=== PATIENT | male | born 1970 | race Caucasian/White ===

== ENCOUNTER 2018-04-05 17:20 | Emergency (ER) | payer OTHER ==
--- NOTE | 2018-04-05 17:43 | ED GI/GU/ABDOMINAL COMPLAINT ---
History of Present Illness General Chief Complaint: Abdominal Pain/Flank Pain Stated Complaint: LEFT SIDED ABD PAIN, X 2 DAYS Source: patient Exam Limitations: no limitations Vital Signs & Intake/Output Vital Signs & Intake/Output Vital Signs Date Time Temp Pulse Resp B/P B/P Pulse O2 O2 Flow FiO2 Mean Ox Delivery Rate 04/05 1913 99.0 89 20 149/99 100 Room Air 04/05 1738 98.6 103 17 130/86 96 Room Air Allergies Coded Allergies: NO KNOWN ALLERGIES (07/15/11) Reconcile Medications Ciprofloxacin HCl (Cipro) 500 MG TABLET 1 TAB PO BID DIVERTICULITIS Metronidazole (Flagyl) 500 MG TABLET 1 TAB PO TID DIVERTICULITIS Triage Note: PT TO ED WITH C/O MID-LEFT SIDED ABD PAIN SINCE LAST NIGHT. SUBJECTIVE FEVER AT HOME. DENIES N/V. STATES URINE SEEMS CONCENTRATED. DENIES CHANGES IN BOWEL. Triage Nurses Notes Reviewed? yes Onset: Abrupt Duration: day(s):, constant Timing: recent history Location: left lower quadrant Radiation: no radiation Activities at Onset: none HPI: 47-year-old male comes into the emergency room complaints of left lower abdominal pain as well as fever. Symptoms for the last couple days. Pain is point tender. Denies any blood in his stool. Denies any vomiting. Denies any prior abdominal surgeries. He comes in for further evaluation. (Luis Felipe Ray) Past History Travel History Traveled to [place] past 21 day No Medical History Any Pertinent Medical History? none Surgical History Surgical History: non-contributory Psychosocial History What is your primary language Czech Tobacco Use: Current Daily Use Daily Tobacco Use Amount/Type: => 5 Cigarettes daily ETOH Use: occasional use Family History Hx Contributory? No (Luis Felipe Ray) Review of Systems Review of Systems Constitutional: Reports: no symptoms. EENTM: Reports: no symptoms. Respiratory: Reports: no symptoms. Cardiovascular: Reports: no symptoms. GI: Reports: see HPI. Genitourinary: Reports: no symptoms. Musculoskeletal: Reports: no symptoms. Skin: Reports: no symptoms. Neurological/Psychological: Reports: no symptoms. Hematologic/Endocrine: Reports: no symptoms. Immunologic/Allergic: Reports: no symptoms. All Other Systems: Reviewed and Negative (Luis Felipe Ray) Physical Exam Physical Exam General Appearance: well developed/nourished, no apparent distress, alert, awake Head: atraumatic, normal appearance Ears, Nose, Throat, Mouth: moist mucous membrane Neck: normal inspection Respiratory: no respiratory distress Gastrointestinal: soft, tenderness (llq) Back: normal inspection Extremities: normal range of motion Neurologic/Psych: awake, alert, oriented x 3 Skin: intact, normal color Core Measures ACS in differential dx? No Sepsis Present: No Sepsis Focused Exam Completed? No (Luis Felipe Ray) Progress Differential Diagnosis: bowel obstruction, diverticulitis, gastritis, ischemic bowel, ureterolithiasis Plan of Care: Orders Procedure Date/time Status URINALYSIS 04/05 1742 Complete C-REACTIVE PROTEIN 04/05 1742 Complete COMPREHENSIVE METABOLIC PANEL 04/05 1742 Complete CBC WITHOUT DIFFERENTIAL 04/05 1742 Complete Laboratory Tests 04/05/18 1801: Urine Color YEL, Urine Clarity HAZY H, Urine pH 6.0, Ur Specific Dorothy >= 1.030, Urine Protein TRACE H, Urine Ketones NEG, Urine Nitrite NEG, Urine Bilirubin NEG, Urine Urobilinogen 0.2, Ur Leukocyte Esterase NEG, Ur Microscopic SEDIMENT EXAMINED, Urine RBC RARE, Urine WBC RARE, Ur Epithelial Cells RARE, Urine Bacteria MOD H, Urine Mucus MOD H, Urine Hemoglobin TRACE-INTACT H, Urine Glucose NEG 04/05/18 1750: Anion Gap 5, Estimated GFR > 60, BUN/Creatinine Ratio 10.8, Glucose 102 H, Calcium 9.9, Total Bilirubin 1.3, AST 14 L, ALT 24, Alkaline Phosphatase 70, C- Reactive Prot, Quant > 9.0 H, Total Protein 7.0, Albumin 4.2, Globulin 2.8, Albumin/Globulin Ratio 1.5, CBC w Diff NO MAN DIFF REQ, RBC 5.05, MCV 89.5, MCH 30.3, MCHC 33.8, RDW 13.9, MPV 7.9, Gran % 77.7 H, Lymphocytes % 12.5 L, Monocytes % 8.8, Eosinophils % 0.7, Basophils % 0.3, Absolute Granulocytes 10.7 H, Absolute Lymphocytes 1.7, Absolute Monocytes 1.2 H, Absolute Eosinophils 0.1 , Absolute Basophils 0 Diagnostic Imaging: Viewed by Me: CT Scan. Discussed w/RAD: CT Scan. Radiology Impression: PATIENT: NAHEED KANG PRESENT AGE: 47 PATIENT ACCOUNT NO: [id number] : 69 LOCATION: [facility] ORDERING PHYSICIAN: Luis Felipe JOHNS SERVICE DATE: 04/05/18 EXAM TYPE: CAT - CT ABD & PELVIS W IV CONTRAST EXAMINATION: CT ABDOMEN AND PELVIS WITH CONTRAST CLINICAL INFORMATION: Left lower quadrant pain. COMPARISON: None. TECHNIQUE: Contiguous axial thin section helical images of the abdomen and pelvis were performed following the administration of 85 mL of intravenous Optiray 320. The data set was reformatted in the coronal and sagittal planes and reviewed on an independent workstation. DLP: 445 mGy-cm. FINDINGS: The visualized lung bases are clear. The visualized portions of the heart are unremarkable. The liver is of normal size and attenuation without focal lesions nor intrahepatic biliary ductal dilation. A normal gallbladder is identified. There is no wall thickening or discernible pericholecystic fluid. The spleen, pancreas, adrenal glands are unremarkable. Both kidneys are of normal size and attenuation without hydronephrosis or nephrolithiasis. Following the administration of IV contrast, prompt symmetric nephrograms are displayed. There is no abdominal free fluid. There is neither mesenteric nor retroperitoneal lymphadenopathy. There is sigmoid diverticulosis with mild wall thickening and adjacent fat stranding. Otherwise, unremarkable unopacified loops of small and large bowel are identified. A normal appendix is identified. There is no pelvic free fluid. The urinary bladder is unremarkable. There is neither pelvic nor inguinal lymphadenopathy. Bone windows: Neither sclerotic nor lytic bone lesions are identified. There is disc height loss at L5/S1. IMPRESSION: Sigmoid diverticulosis and diverticulitis without drainable fluid collections. DICTATED BY: Vikram Chen MD DATE/TIME DICTATED:04/05/181905 MANAGER SALES AND MARKETING: [employer] DATE/TIME TRANSCRIBED:04/05/181905 CONFIDENTIAL, DO NOT COPY WITHOUT APPROPRIATE AUTHORIZATION. <Electronically signed in Other Vendor System> SIGNED BY: Vikram Chen MD 04/05/181920 Initial ED EKG: none (Yg JOHNS,Luis Felipe) Departure Departure Disposition: HOME OR SELF CARE Condition: Stable Clinical Impression Primary Impression: Acute diverticulitis Referrals: Shama ALCANTARA,Rafat Adamson MD,Andre Esposito Additional Instructions: Take ciprofloxacin and Flagyl as prescribed. Follow-up with primary care doctor. Return if any concerns worsening symptoms. Please go over all results of today's visit with your primary care doctor. Contact your primary care doctor to let them know you were here in the emergency room. There may be nonspecific findings which may not be related to your visit today here in the emergency room but may require further evaluation and chronic monitoring by your primary care doctor. If you had a laceration today the chance of foreign body always remains. You should follow-up with your primary care doctor for recheck in 3-5 days for a wound check. If you had an x-ray done there is a chance that a fracture could have been missed on initial read and you should follow-up with your primary care doctor for repeat x-rays if symptoms persist. If your blood pressure was elevated here in the emergency room please have rechecked by zo primary care doctor within the next 48. If you were prescribed a narcotic here in the emergency room or any type of controlled substances you're not allowed to drive while taking this medication or operate any type of heavy machinery. Narcotics can make you feel lightheaded dizziness nausea and can cause constipation. You may need to chicken picker a stool softener. Thank you for choosing [facility] emergency room. Please return to the emergency room immediately if you have any other concerns worsening of symptoms. Departure Forms: Customer Survey General Discharge Information Prescriptions: Current Visit Scripts Ciprofloxacin HCl (Cipro) 1 TAB PO BID #20 TAB Metronidazole (Flagyl) 1 TAB PO TID #30 TAB Comments 04/05/18 No evidence of perforation or abscess. Patient started on oral antibiotics. Follow-up with veneer grader. Return if any other concerns. (Luis Felipe Ray) PA/GARMENT PATTERNMAKER Co-Sign Statement Statement: ED Attending supervision documentation- I saw and evaluated the patient. I have also reviewed all the pertinent lab results and diagnostic results. I agree with the findings and the plan of care as documented in the PA's/GARMENT PATTERNMAKER's documentation. x I have reviewed the ED Record and agree with the PA's/GARMENT PATTERNMAKER's documentation. [] Additions or exceptions (if any) to the PAs/GARMENT PATTERNMAKER's note and plan are summarized below: [] (Nikolai ALCANTARA,Herman)
[2018-04-05 17:57] LABS: ABSOLUTE BASOPHIL COUNT 0 /CUMM (0.0-0.2); ABSOLUTE EOSINOPHIL COUNT 0.1 /CUMM (0.0-0.7); ABSOLUTE GRANULOCYTE CT 10.7 /CUMM (1.4-6.5); ABSOLUTE LYMPH COUNT 1.7 /CUMM (1.2-3.4); ABSOLUTE MONOCYTE COUNT 1.2 /CUMM (0.10-0.60); BASOPHIL % 0.3 % (0.0-2.0); EOSINOPHIL % 0.7 % (0-5); GRANULOCYTE % 77.7 % (42.2-75.2); HEMATOCRIT 45.2 % (42-52); MEAN CORPUSCULAR HGB 30.3 PG (27.0-31.0); MEAN CORPUSCULAR HGB CONC 33.8 G/DL (33.0-37.0); MEAN CORPUSCULAR VOLUME 89.5 FL (80.0-94.0); MEAN PLATELET VOLUME 7.9 FL (7.4-10.4); PLATELET COUNT 254 /CUMM (130-400); RBC DISTRIBUTION WIDTH 13.9 % (11.5-14.5); RED BLOOD CELL CT 5.05 /CUMM (4.70-6.10); WHITE BLOOD CELL COUNT 13.8 /CUMM (4.8-10.8)
[2018-04-05 19:13] VITALS: BP 149/99
--- NOTE | 2018-04-05 19:21 | CT SCAN REPORT ---
EXAMINATION: CT ABDOMEN AND PELVIS WITH CONTRAST CLINICAL INFORMATION: Left lower quadrant pain. COMPARISON: None. TECHNIQUE: Contiguous axial thin section helical images of the abdomen and pelvis were performed following the administration of 85 mL of intravenous Optiray 320. The data set was reformatted in the coronal and sagittal planes and reviewed on an independent workstation. DLP: 445 mGy-cm. FINDINGS: The visualized lung bases are clear. The visualized portions of the heart are unremarkable. The liver is of normal size and attenuation without focal lesions nor intrahepatic biliary ductal dilation. A normal gallbladder is identified. There is no wall thickening or discernible pericholecystic fluid. The spleen, pancreas, adrenal glands are unremarkable. Both kidneys are of normal size and attenuation without hydronephrosis or nephrolithiasis. Following the administration of IV contrast, prompt symmetric nephrograms are displayed. There is no abdominal free fluid. There is neither mesenteric nor retroperitoneal lymphadenopathy. There is sigmoid diverticulosis with mild wall thickening and adjacent fat stranding. Otherwise, unremarkable unopacified loops of small and large bowel are identified. A normal appendix is identified. There is no pelvic free fluid. The urinary bladder is unremarkable. There is neither pelvic nor inguinal lymphadenopathy. Bone windows: Neither sclerotic nor lytic bone lesions are identified. There is disc height loss at L5/S1. IMPRESSION: Sigmoid diverticulosis and diverticulitis without drainable fluid collections.
[2018-04-05] MEDS ORDERED: CIPRO500 M1 PO (19:30)
[2018-04-05] MEDS ORDERED: FLAGYL500 MG PO (19:30)
== END 2018-04-05 19:49 ==
LOC: ERH 17:20
PROVIDERS: Physician Assistant Medical
DX: K57.92 Diverticulitis of intestine, part unspecified, without perforation or abscess without bleeding (principal); F17.210 Nicotine dependence, cigarettes, uncomplicated
CPT/HCPCS: 74177; 81001

== ENCOUNTER 2018-04-22 12:58 | Emergency (ER) | payer OTHER ==
[~2018-04-22] VITALS: Ht 182.9 cm; Wt 83.9 kg
[~2018-04-22 12:58] MED LIST: CIPRO500 M1 PO; FLAGYL500 MG PO
[2018-04-22 13:10] VITALS: BP 141/87
[2018-04-22 13:38] LABS: ABSOLUTE BASOPHIL COUNT 0 /CUMM (0.0-0.2); ABSOLUTE EOSINOPHIL COUNT 0.2 /CUMM (0.0-0.7); ABSOLUTE GRANULOCYTE CT 6.3 /CUMM (1.4-6.5); ABSOLUTE LYMPH COUNT 1.3 /CUMM (1.2-3.4); ABSOLUTE MONOCYTE COUNT 0.5 /CUMM (0.10-0.60); BASOPHIL % 0.4 % (0.0-2.0); EOSINOPHIL % 2.9 % (0-5); GRANULOCYTE % 75.1 % (42.2-75.2); HEMATOCRIT 44.8 % (42-52); MEAN CORPUSCULAR HGB 30.2 PG (27.0-31.0); MEAN CORPUSCULAR HGB CONC 34.1 G/DL (33.0-37.0); MEAN CORPUSCULAR VOLUME 88.8 FL (80.0-94.0); MEAN PLATELET VOLUME 7.7 FL (7.4-10.4); PLATELET COUNT 326 /CUMM (130-400); RBC DISTRIBUTION WIDTH 14.2 % (11.5-14.5); RED BLOOD CELL CT 5.05 /CUMM (4.70-6.10); WHITE BLOOD CELL COUNT 8.4 /CUMM (4.8-10.8)
--- NOTE | 2018-04-22 13:43 | ED GI/GU/ABDOMINAL COMPLAINT ---
History of Present Illness General Chief Complaint: Abdominal Pain/Flank Pain Stated Complaint: ABD PAIN DX DIVERTICULITIS Source: patient Exam Limitations: no limitations Vital Signs & Intake/Output Vital Signs & Intake/Output Vital Signs Date Time Temp Pulse Resp B/P B/P Pulse O2 O2 Flow FiO2 Mean Ox Delivery Rate 04/22 1339 Room Air 04/22 1310 98.1 86 18 141/87 98 Room Air Allergies Coded Allergies: NO KNOWN ALLERGIES (07/15/11) Reconcile Medications Ciprofloxacin HCl (Cipro) 500 MG TABLET 1 TAB PO BID DIVERTICULITIS Metronidazole (Flagyl) 500 MG TABLET 1 TAB PO TID DIVERTICULITIS Triage Note: 47M SEEN THIS WEEK AND DX WITH DIVERTICULITIS EARLIER, HAS CONTINUED PAIN TO LOW ABD/PELVIS RADIATING TO THE LEFT SIDE. TAKING FLAGYL AND CIPRO AND SYMPTOMS ARE SLIGHTLY BETTER BUT REMAINS WITH 6/10 PAIN. HAS APPT W GI SPECIALIST DR YIN OF [place] WEDNESDAY. Triage Nurses Notes Reviewed? yes Onset: Abrupt Duration: week(s): (2-3), better, continues in ED Timing: single episode today Quality/Severity: cramping Severity Numbers: 6 Location: left lower quadrant, suprapubic Radiation: no radiation Activities at Onset: none Prior Abdominal Problems: none Past Sexual History: Unobtainable at this time Associated Symptoms: abdominal pain HPI: 47-year-old male with no significant past medical history presents for evaluation of diverticulitis. Patient was seen here on April 05 with left lower quadrants of the pubic pain. CAT scan revealed unconjugated diverticulitis. He was started on Cipro and Flagyl and discharged home. Patient reports he finished the Cipro and Flagyl for course yesterday. He reports his pain is improved significantly saying that his pain was a 12 out of 10 when he first presented and now is a 6 out of 10. The pain is persisting. It is not getting worse he's had no fevers no diarrhea nausea vomiting hematochezia melena chest pain or shortness of breath. He's never had diverticulitis before. No abdominal surgeries. He states she is feeling well otherwise but is concerned because the pain is persisting. He does have a follow-up 1 with a screen tender helper this coming Wednesday. He is requesting a work note until Wednesday because the pain gets worse while he is working. (Markell Urias) Past History Travel History Traveled to [place] past 21 day No Medical History Any Pertinent Medical History? see below for history Neurological: NONE EENT: NONE Cardiovascular: NONE Respiratory: NONE Gastrointestinal: DIVERTICULITIS Hepatic: NONE Musculoskeletal: NONE Psychiatric: NONE Endocrine: NONE Surgical History Surgical History: non-contributory Psychosocial History What is your primary language Icelandic Tobacco Use: Never used Family History Hx Contributory? No (Markell Urias) Review of Systems Review of Systems Constitutional: Reports: no symptoms. EENTM: Reports: no symptoms. Respiratory: Reports: no symptoms. Cardiovascular: Reports: no symptoms. GI: Reports: see HPI, abdominal pain. Genitourinary: Reports: no symptoms. Musculoskeletal: Reports: no symptoms. Skin: Reports: no symptoms. Neurological/Psychological: Reports: no symptoms. Hematologic/Endocrine: Reports: no symptoms. Immunologic/Allergic: Reports: no symptoms. All Other Systems: Reviewed and Negative (Markell Urias) Physical Exam Physical Exam General Appearance: well developed/nourished, no apparent distress, alert, awake Head: atraumatic, normal appearance Eyes: Bilateral: normal appearance, PERRL, EOMI. Ears, Nose, Throat, Mouth: hearing grossly normal, moist mucous membrane Neck: normal inspection, supple, full range of motion Respiratory: normal breath sounds, chest non-tender, no respiratory distress, lungs clear Cardiovascular: regular rate/rhythm Gastrointestinal: normal bowel sounds, soft, no organomegaly, tenderness (LLQ, SUPRAPUBIC), NO REBOUND OR GAURDING Rectal: heme negative stool (NO MELENA OR GROSS BLOOD) Back: normal inspection, normal range of motion, no vertebral tenderness, NO CVAT Extremities: normal range of motion Neurologic/Psych: no motor/sensory deficits, awake, alert, oriented x 3, normal gait, normal mood/affect Skin: intact, normal color, warm/dry Core Measures ACS in differential dx? No Sepsis Present: No Sepsis Focused Exam Completed? No (Markell Urias) Progress Differential Diagnosis: bowel obstruction, colon cancer, diverticulitis, ischemic bowel, inflamm bowel dis, peptic ulcer, PUD/GERD, ureterolithiasis, urinary retention, urethritis, UTI/pyelo, abscess, perforation Plan of Care: Orders Procedure Date/time Status Add-on Test (ER Only) 04/22 1351 Active C-REACTIVE PROTEIN 04/22 1322 Complete Saline Lock 04/22 1303 Active URINALYSIS 04/22 1303 Complete COMPREHENSIVE METABOLIC PANEL 04/22 130 Complete CBC WITHOUT DIFFERENTIAL 04/22 1303 Complete Laboratory Tests 04/22/18 1330: Urine Color YEL, Urine Clarity CLEAR, Urine pH 6.0, Ur Specific [place] 1.025, Urine Protein NEG, Urine Ketones NEG, Urine Nitrite NEG, Urine Bilirubin NEG, Urine Urobilinogen 0.2, Ur Leukocyte Esterase NEG, Ur Microscopic EXAM NOT REQUIRED, Urine Hemoglobin NEG, Urine Glucose NEG 04/22/18 1322: Anion Gap 8, Estimated GFR > 60, BUN/Creatinine Ratio 14.0, Glucose 102 H, Calcium 10.3 H, Total Bilirubin 0.2, AST 23, ALT 35, Alkaline Phosphatase 74, C -Reactive Prot, Quant 2.2 H, Total Protein 6.8, Albumin 4.3, Globulin 2.5, Albumin/Globulin Ratio 1.7, CBC w Diff NO MAN DIFF REQ, RBC 5.05, MCV 88.8, MCH 30.2, MCHC 34.1, RDW 14.2, MPV 7.7, Gran % 75.1, Lymphocytes % 15.0 L, Monocytes % 6.6, Eosinophils % 2.9, Basophils % 0.4, Absolute Granulocytes 6.3, Absolute Lymphocytes 1.3, Absolute Monocytes 0.5, Absolute Eosinophils 0.2, Absolute Basophils 0 Patient is here for reevaluation after being diagnosed with diverticulitis in April 05. He completed a course of Cipro and Flagyl but reports he still has pain. The pain is improved significant elevations first starting. Patient does appear clinically well he has no fevers. No prior blood per rectum. His abdomen is soft with left lower quadrant specific tenderness without rebound or guarding. He is afebrile. Labs are reevaluated. See attached CAT scan from April 05. Patient declined additional imaging he wants to follow up with his gastrologist first. Labs are back and are unremarkable. Patient's white blood cell count has decreased from 13-8. Patient appears clinically well. He does not wish to get additional imaging today. given he just had imaging ON THE , completed a course OF ABX AND is feeling better it is unlikely he is perforated or has an abscess. Patient will be instructed to follow-up with his screen tender helper. I discussed return precautions in detail return immediately with worsening or changing pain right red blood per rectum melena fevers nausea vomiting or any other concerns patient agrees the plan Diagnostic Imaging: Viewed by Me: CT Scan. Discussed w/RAD: CT Scan. Radiology Impression: PATIENT: NAHEED KANG PRESENT AGE: 47 PATIENT ACCOUNT NO: [id number] : 69 LOCATION: [facility] ORDERING PHYSICIAN: Luis Felipe JOHNS SERVICE DATE: 04/05/18 EXAM TYPE: CAT - CT ABD & PELVIS W IV CONTRAST EXAMINATION: CT ABDOMEN AND PELVIS WITH CONTRAST CLINICAL INFORMATION: Left lower quadrant pain. COMPARISON: None. TECHNIQUE: Contiguous axial thin section helical images of the abdomen and pelvis were performed following the administration of 85 mL of intravenous Optiray 320. The data set was reformatted in the coronal and sagittal planes and reviewed on an independent workstation. DLP: 445 mGy-cm. FINDINGS: The visualized lung bases are clear. The visualized portions of the heart are unremarkable. The liver is of normal size and attenuation without focal lesions nor intrahepatic biliary ductal dilation. A normal gallbladder is identified. There is no wall thickening or discernible pericholecystic fluid. The spleen, pancreas, adrenal glands are unremarkable. Both kidneys are of normal size and attenuation without hydronephrosis or nephrolithiasis. Following the administration of IV contrast, prompt symmetric nephrograms are displayed. There is no abdominal free fluid. There is neither mesenteric nor retroperitoneal lymphadenopathy. There is sigmoid diverticulosis with mild wall thickening and adjacent fat stranding. Otherwise, unremarkable unopacified loops of small and large bowel are identified. A normal appendix is identified. There is no pelvic free fluid. The urinary bladder is unremarkable. There is neither pelvic nor inguinal lymphadenopathy. Bone windows: Neither sclerotic nor lytic bone lesions are identified. There is disc height loss at L5/S1. IMPRESSION: Sigmoid diverticulosis and diverticulitis without drainable fluid collections. DICTATED BY: Vikram Chen MD DATE/TIME DICTATED:04/05/181905 DIRECTOR OF INDUSTRIAL RELATIONS: SERGO DATE/TIME TRANSCRIBED:04/05/181905 CONFIDENTIAL, DO NOT COPY WITHOUT APPROPRIATE AUTHORIZATION. <Electronically signed in Other Vendor System> SIGNED BY: Vikram Chen MD 04/05/181920 Initial ED EKG: none (Dieudonne JOHNS,Markell) Departure Departure Disposition: HOME OR SELF CARE Condition: Stable Clinical Impression Primary Impression: Abdominal pain Referrals: Niels ALCANTARA,Rocco Arana (PCP/Family) Additional Instructions: Rest and drink plenty of fluids. Tylenol and ibuprofen for pain. Make a follow -up with her screen tender helper for Wednesday as scheduled. Monitor symptoms closely return with worsening/changing pain, fevers, nausea vomiting, bright red blood in your stool, Black stools or any other concerns. Departure Forms: Customer Survey General Discharge Information (Markell Urias) PA/FLEXOGRAPHIC PRINTING PRESS OPERATOR Co-Sign Statement Statement: ED Attending supervision documentation- [] I saw and evaluated the patient. I have also reviewed all the pertinent lab results and diagnostic results. I agree with the findings and the plan of care as documented in the PA's/FLEXOGRAPHIC PRINTING PRESS OPERATOR's documentation. [X] I have reviewed the ED Record and agree with the PA's/FLEXOGRAPHIC PRINTING PRESS OPERATOR's documentation. [] Additions or exceptions (if any) to the PAs/FLEXOGRAPHIC PRINTING PRESS OPERATOR's note and plan are summarized below: [] (Israel Heart DO)
== END 2018-04-22 14:15 ==
LOC: ERH 12:58
PROVIDERS: Emergency Medicine
DX: R10.32 Left lower quadrant pain (principal); K57.92 Diverticulitis of intestine, part unspecified, without perforation or abscess without bleeding
CPT/HCPCS: 81003